=== PATIENT | male | born 1985 | race Hispanic/Latino ===

== ENCOUNTER 2022-11-11 22:04 | Emergency (ER) | payer OTHER, SELFPAY ==
--- NOTE | ~2022-11-11 | XR_ITS ---
EXAMINATION: XR chest 2V DATE: 11/11/2022 22:53 INDICATION: Palpitations, chills and chest pressure TECHNIQUE: PA and lateral views of the chest were obtained. COMPARISON: None FINDINGS: Lung volumes appear mildly decreased. No focal airspace opacities, pulmonary edema, pleural effusion or pneumothorax. Cardiomediastinal silhouette is normal. Mild thoracic spondylosis. IMPRESSION: 1. Mildly decreased lung volumes which could be due to suboptimal inspiratory effort. No other acute cardiopulmonary disease. Reviewed, dictated and finalized at location A. IMPRESSION: 1. Mildly decreased lung volumes which could be due to suboptimal inspiratory e ffort. No other acute cardiopulmonary disease.
--- NOTE | 2022-11-11 22:13 | ECG_ITS ---
Measurements Intervals [place] Rate: 93 P: 45 IA: 152 QRS: -17 QRSD: 103 T: 62 QT: 369 QTc: 459 Interpretive Statements SINUS RHYTHM WITH FREQUENT VENTRICULAR PREMATURE COMPLEXES POSSIBLE LEFT ATRIAL ENLARGEMENT [-0.1mV P WAVE IN V1/V2] POSSIBLE LEFT VENTRICULAR HYPERTROPHY [VOLTAGE CRITERIA PLUS LAE OR QRS WIDENING] NO PREVIOUS ECG AVAILABLE FOR COMPARISON Electronically Signed On 11-12-2022 11:47:21 CDT by Hamida Lee M.D.
[2022-11-11 22:24] VITALS: BP 143/91; PULSE 90; RESP 15; TEMP 36.6; O2SAT 96
[2022-11-11 22:37] LABS: Basophils Percent Auto 0.5 % (0.2-1.2); Eosinophils Absolute Auto 0.1 K/mm3 (0-0.3); Hematocrit 45.3 % (42.0-52.0); Hemoglobin 15.1 g/dL (14.0-18.0); Immature Granulocyte Absolute 0.01 K/mm3 (0.00-0.031); Immature Granulocyte Percent A 0.1 % (0-0.5); Lymphocytes Absolute Auto 3.72 K/mm3 (0.9-3.2); Lymphocytes Percent Auto 47.6 % (18.3-44.2); Mean Corpuscular HGB Conc 33.3 g/dl (32-36); Mean Corpuscular Hemoglobin 30.9 pg (26-34); Mean Corpuscular Volume 92.8 fl (80-100); Mean Platelet Volume 9.8 fl (7.4-10.4); Monocytes Absolute Auto 0.6 K/mm3 (0.1-0.6); Monocytes Percent Auto 7.3 % (2.6-8.5); Neutrophils Absolute Auto 3.4 K/mm3 (1.3-6.7); Neutrophils Percent Auto 43.5 % (45.5-73.1); Platelet Count Result 289 k/mm3 (150-375); Red Blood Count 4.88 M/mm3 (4.6-6.20); Red Cell Distribution Width 12.6 % (11.5-14.5); White Blood Count 7.8 K/mm3 (4.5-10.0)
[2022-11-11 22:47] LABS: INR 0.9; Prothrombin Time 12.9 Seconds (11.1-14.7)
[2022-11-11 22:48] LABS: Partial Thromboplastin Time 23.9 SECONDS (22.3-36.8)
[2022-11-11 22:49] LABS: Alanine Aminotransferase 53 U/L (6-50); Albumin Level 4.6 g/dL (3.5-5.1); Alkaline Phosphatase 97 U/L (38-126); Anion Gap 8 mmol/L (8-16); Aspartate Amino Transferase 38 U/L (17-59); Bilirubin,Total 0.3 mg/dL (0.2-1.3); Blood Urea Nitrogen 17 mg/dL (9-20); Calcium 8.8 mg/dL (8.4-10.2); Carbon Dioxide 26 mmol/L (22-30); Chloride 103 mmol/L (98-107); Estimated Glomerular Filt Rate > 60; Glucose 128 mg/dL (65-110); Lipase 136 U/L (23-300); Potassium 4.3 mmol/L (3.4-5.0); Sodium 137 mmol/L (137-145)
[2022-11-11 23:00] LABS: Troponin I < 0.012 ng/mL (0.000-0.034)
[2022-11-12 03:01] LABS: Magnesium 2.2 mg/dL (1.6-2.3)
[2022-11-12 03:14] LABS: Troponin I < 0.012 ng/mL (0.000-0.034)
[2022-11-12] MEDS: Please add drug allergy info to patient profile. 1 EACH XX (03:14)
[2022-11-12] MEDS: MAGNESIUM SULF 2 GM/WATER 50ML 2 GM/50 ML BAG IVPB (03:16)
[2022-11-12 03:22] VITALS: BP 119/80; PULSE 63; RESP 20; O2SAT 100
--- NOTE | 2022-11-12 04:29 | ED.ARRPALP ---
HPI - Arrhythmia/Palpitations General Chief Complaint: Arrhythmia/Palpitations Stated Complaint: palpitations Time Seen by Provider: 11/12/22 01:44 History of Present Illness HPI narrative: This is a 37-year-old male, with reported history of tachycardia, who presents the emergency department complaining of nausea, chills, shortness of breath and chest pressure beginning approximately an hour prior to arrival. The patient states he was in his usual state of health, when he took a THC gummy, drink beer and had dinner. He states approximately 45 minutes after taking the gummy, he began having the symptoms as above. He states the chest pressure is rated 4/10, does not radiate and is located in the midline chest. States he has not taken a THC gummy and several months. Related Data Allergies Allergy/AdvReac Type Severity Reaction Status Date / Time No Known Allergies Allergy Verified 11/12/22 02:48 Review of Systems Review of Systems: CONSTITUTIONAL: Chills denies fever, or sweats. CARDIOVASCULAR: Chest pain, palpitations denies edema. RESPIRATORY: Denies cough or dyspnea. GASTROINTESTINAL: Nausea denies abdominal pain, vomiting or diarrhea. GENITOURINARY: Denies dysuria or hematuria. SKIN: Denies rash or itching. MUSCULOSKELETAL: Denies back pain, joint pain, or myalgia. NEUROLOGIC: Denies headache, numbness, dizziness, or weakness. PSYCHIATRIC: Denies anxiety or depression. PMFSH Past Medical History Medical History CVA (cerebral vascular accident) Sinus tachycardia Surgical History Surgical History No significant past surgical history Social History Social History Smoking status: Former smoker Alcohol intake: current Substance use: current Substance use type: marijuana Exam Narrative: GENERAL: Well-developed, well-nourished, and in no acute distress. HEAD: Normocephalic, atraumatic. EYES: PERRLA and EOMI. CHEST: Clear to auscultation. No respiratory distress. No wheezes rales or rhonchi HEART: Regular rate and rhythm. No murmur heard. Normal peripheral pulses. ABDOMEN: Soft, nontender, nondistended, normal active bowel sounds. EXTREMITIES: Normal range of motion. No edema. SKIN: Warm, dry, no rash. NEURO: Alert and oriented x3. Moving all 4 limbs purposefully. PSYCH: Normal mood and affect. Course Course Emergency Course: 02:45 - Initial troponin negative. Heart score 2. Repeat troponin drawn short time ago. Will wait for results. 04:05 - Repeat troponin negative. Chemistries within normal limits including a normal magnesium. CBC unremarkable. Chest x-ray unremarkable. EKG demonstrates multiple PVCs but is otherwise not concerning for ischemia. I suspect the patient's symptoms are related to the THC gummy he consumed earlier this evening. The patient states his symptoms are improved. Will discharge. Discussed return and emergency precautions including signs/symptoms of ACS and respiratory distress. The patient voiced understanding and is comfortable with the plan. All questions answered to his satisfaction. Vital Signs Vital signs: Vital Signs Temperature 97.9 F 11/11/22 22:24 Pulse Rate 90 11/11/22 22:24 Respiratory Rate 15 11/11/22 22:24 Blood Pressure 143/91 H 11/11/22 22:24 Pulse Oximetry 96 11/11/22 22:24 Oxygen Delivery Room Air 11/11/22 22:24 Temperature 97.9 F 11/11/22 22:24 Pulse Rate 63 11/12/22 03:22 Respiratory Rate 20 11/12/22 03:22 Blood Pressure 119/80 11/12/22 03:22 Pulse Oximetry 100 11/12/22 03:22 Oxygen Delivery Room Air 11/11/22 22:24 MDM - Arrhythmia/Palpitations MDM Narrative Medical decision making narrative: Plan: Labs, imaging, EKG, troponin, IV fluids, reassess Differential Diagnosis Differential diagnosis: Likely palpitations, sin
[2022-11-12 04:53] VITALS: BP 118/79; PULSE 67; RESP 14; O2SAT 98
== END 2022-11-12 04:54 | disposition home or self-care (01) ==
PROVIDERS: Emergency Provider Preventive Medicine Aerospace Medicine
DX: R00.2 Palpitations (principal); F12.90 Cannabis use, unspecified, uncomplicated; Z86.73 Personal history of transient ischemic attack (TIA), and cerebral infarction without residual deficits; Z87.891 Personal history of nicotine dependence
CPT/HCPCS: 36415; 71046; 80053; 83690; 83735; 84484; 85025; 85610; 85730; 93005; 96365; 99284; J3475